=== PATIENT | female | born 1970 | race Hispanic/Latino ===

== ENCOUNTER → 2017-08-09 | Outpatient (CLI) | payer MEDICARE | END | disposition home or self-care (01) | LOC: SHCH 14:10 | PROVIDERS: ATTEND Internal Medicine Cardiovascular Disease | DX: R01.1 Cardiac murmur, unspecified (principal); R00.2 Palpitations; R94.31 Abnormal electrocardiogram [ECG] [EKG] | CPT/HCPCS: 93306 ==

== ENCOUNTER 2018-11-01 03:59 | Emergency (ER) | payer MEDICARE ==
[~2018-11-01] VITALS: Ht 149.9 cm; Wt 73.5 kg
[2018-11-01] MEDS ORDERED: MORPHINE SULFATE 4 MG/1ML SYG ONE ×2 (05:06→06:30)
[2018-11-01] MEDS ORDERED: ONDANSETRON HCL 4 MG/2 ML VIAL ONE ×2 (05:06→08:11)
[2018-11-01 05:15] LABS: BASOPHILS % (AUTO) 0.9 % (0.0-5.0); EOSINOPHILS % (AUTO) 6.7 % (0.0-8.0); HEMATOCRIT 40.9 % (36-48); LYMPHOCYTES % (AUTO) 36.2 % (21.0-51.0); MEAN CORPUSCULAR HEMOGLOBIN 25.1 pg (27.0-33.0); MONOCYTES % (AUTO) 6.8 % (3.0-13.0); NEUTROPHILS % (AUTO) 49.4 % (40.0-77.0); PLATELET COUNT (AUTO) 373 K/uL (130-400); RED BLOOD CELL COUNT(AUTO) 5.39 MIL/uL (4.00-5.50); RED CELL DISTRIBUTION WIDTH 20.8 % (11.0-15.5); WHITE BLOOD COUNT (AUTO) 8.7 K/uL (4.8-10.8)
[2018-11-01 05:23] LABS: CREATININE 0.9 mg/dL (0.5-1.5); POTASSIUM 3.6 mmol/L (3.5-5.1)
[2018-11-01 05:27] LABS: ALBUMIN 3.4 g/dL (3.5-5.0); BILIRUBIN,TOTAL 0.4 mg/dL (0.2-1.0); TOTAL PROTEIN, SERUM 7.6 g/dL (6.0-8.3)
[2018-11-01] MEDS ORDERED: TETRACAINE HCL 0.5% 4 ML OPHTH SOLN ONE (06:43)
[2018-11-01] MEDS ORDERED: PILOCARPINE HCL 2% 15 ML DROPS ONE (07:05)
[2018-11-01] MEDS ORDERED: ACETAZOLAMIDE SODIUM 500 MG VIAL ONE (09:02)
[2018-11-01] MEDS ORDERED: TIMOLOL MALEATE 0.25% 5 ML BOTTLE ONE (09:03)
== END 2018-11-01 10:05 | disposition home or self-care (01) ==
LOC: EDH 03:59
DX: H40.9 Unspecified glaucoma (principal); H54.8 Legal blindness, as defined in USA; J45.909 Unspecified asthma, uncomplicated; G43.909 Migraine, unspecified, not intractable, without status migrainosus; Z98.890 Other specified postprocedural states; Z90.710 Acquired absence of both cervix and uterus
CPT/HCPCS: 36415; 70450; 80053; 85025; 96365; 96375; 96376; 99285; J1120; J2270 ×2; J2405 ×2

== ENCOUNTER 2019-12-16 | Emergency (ER) | payer MEDICARE | END 2019-12-16 20:29 | disposition home or self-care (01) | DX: Z20.7 Contact with and (suspected) exposure to pediculosis, acariasis and other infestations (principal); J45.909 Unspecified asthma, uncomplicated; G43.909 Migraine, unspecified, not intractable, without status migrainosus ==

== ENCOUNTER 2024-01-01 16:04 | Emergency (ER) | payer OTHER, MEDICARE ==
[~2024-01-01] VITALS: Ht 149.9 cm; Wt 80.7 kg
[2024-01-01 17:22] LABS: BASOPHILS # (AUTO) 0.06 K/uL (0.00-0.20); BASOPHILS % (AUTO) 0.6 % (0.0-5.0); EOSINOPHILS # (AUTO) 0.23 K/uL (0.00-0.70); EOSINOPHILS % (AUTO) 2.4 % (0.0-8.0); HEMATOCRIT 47.9 % (36-48); IMMATURE GRANULOCYTE ABSOLUTE 0.04 K/uL (0-1); LYMPHOCYTES # (AUTO) 2.6 K/uL (1.0-4.8); LYMPHOCYTES % (AUTO) 27.3 % (21.0-51.0); MEAN CORPUSCULAR HEMOGLOBIN 28.9 pg (27.0-33.0); MEAN CORPUSCULAR HGB CONC 32.6 g/dL (32.0-36.0); MEAN CORPUSCULAR VOLUME 88.7 fL (79-99); MONOCYTES # (AUTO) 0.6 K/uL (0.1-1.0); MONOCYTES % (AUTO) 6.1 % (3.0-13.0); NEUTROPHILS # (AUTO) 6.1 K/uL (1.8-7.7); NEUTROPHILS % (AUTO) 63.2 % (40.0-77.0); PLATELET COUNT (AUTO) 296 K/uL (130-400); RED CELL DISTRIBUTION WIDTH 14.6 % (11.0-15.5); WHITE BLOOD COUNT (AUTO) 9.6 K/uL (4.8-10.8)
[2024-01-01 17:31] LABS: CREATININE 0.8 mg/dL (0.5-1.0)
[2024-01-01 17:35] LABS: INR 0.99 (0.85-1.15); PARTIAL THROMBOPLASTIN TIME 23.6 SEC (26.3-35.5); PROTHROMBIN TIME 10.5 SEC (9.6-11.6)
[2024-01-01 17:44] LABS: B-TYPE NATRIURETIC PEPTIDE 34 pg/mL (0-100)
[2024-01-01 17:46] LABS: APPEARANCE,URINE CLOUDY (CLEAR); BILIRUBIN,URINE NEGATIVE (NEGATIVE); COLOR,URINE YELLOW (YELLOW); GLUCOSE, URINE (UA) NEGATIVE (NEGATIVE); KETONES,URINE 5 mg/dL (NEGATIVE); LEUKOCYTE ESTERASE ,URINE NEGATIVE Leu/uL (NEGATIVE); NITRATE,URINE NEGATIVE (NEGATIVE); OCCULT BLOOD,URINE NEGATIVE (NEGATIVE); PROTEIN,URINE NEGATIVE (NEGATIVE); UROBILINOGEN,URINE 0.2 mg/dL (0.2-1.0)
[2024-01-01 17:55] LABS: ADD UA MICROSCOPIC YES
[2024-01-01 18:03] LABS: MUCUS,URINE FEW LPF (None Seen); SQUAMOUS EPITHELIAL CELL,UR FEW /HPF (0-2)
[2024-01-01 18:06] LABS: BACTERIA,URINE Rare /HPF (None Seen)
[2024-01-01] MEDS: 0.9%NACL 1000ML 1,000 ML IV ONE (18:20)
[2024-01-01] MEDS: MECLIZINE HCL 25 MG TABLET PO ONE (18:20)
[2024-01-01] MEDS ORDERED: FLUT16H NASAL (18:24)
[2024-01-01] MEDS ORDERED: LORA10TA7 PO (18:24)
[2024-01-01] MEDS ORDERED: AMOX1TAB16 PO (18:24)
[2024-01-01 18:27] VITALS: BP 114/79; PULSE 75; RESP 16; O2SAT 98
[2024-01-01] MEDS: DEXAMETHASONE SOD PHOSPHATE 4 MG/ML 1ML VIAL IM ONE (18:29)
== END 2024-01-01 19:05 | disposition home or self-care (01) ==
LOC: EDH 16:04
DX: J32.9 Chronic sinusitis, unspecified (principal); Z88.5 Allergy status to narcotic agent; Z90.49 Acquired absence of other specified parts of digestive tract
CPT/HCPCS: 99285; 96360; 70450; 71045; 82550; 83721; 84484; 80048; 83880; 85025; 85610; 85730; 81001; 36415; 93005; 96372; J1100; J7030

== ENCOUNTER 2024-05-11 17:19 | Emergency (ER) | payer OTHER, MEDICARE ==
[~2024-05-11] VITALS: Ht 149.9 cm; Wt 78.5 kg
[~2024-05-11 17:19] MED LIST: AMOX1TAB16 PO; FLUT16H NASAL; LORA10TA7 PO
[2024-05-11 17:41] VITALS: BP 133/69; PULSE 88; RESP 14; TEMP 98.5; O2SAT 98
[2024-05-11] MEDS ORDERED: HYDR453. TP (17:47)
[2024-05-11] MEDS: DiphenhydrAMINE HCL 25 MG CAPSULE PO ONE (18:15)
[2024-05-11] MEDS ORDERED: DIPH50 PO (18:28)
== END 2024-05-11 18:35 | disposition home or self-care (01) ==
LOC: EDH 17:19
DX: L20.9 Atopic dermatitis, unspecified (principal); Z88.5 Allergy status to narcotic agent; Z79.899 Other long term (current) drug therapy; Z90.49 Acquired absence of other specified parts of digestive tract; Z98.890 Other specified postprocedural states
CPT/HCPCS: 99282; Q0163

== ENCOUNTER → 2024-10-21 | Outpatient (CLI) | payer OTHER, MEDICARE ==
[~2024-10-21] MED LIST changes: +DIPH50 PO; +HYDR453. TP; +IOHEXOL 350 MG/ML 100ML INFUS..BTL IV ONE; +metoPROLOL tartRATE 1 MG/ML 5ML VIAL IV ONE
--- NOTE | 2024-10-21 10:20 | HMCIMG ---
CT OF THE CHEST WITH CONTRAST- CT Cardiac Angio co-interpretation This is done as part of the CT cardiac angiogram study. The interpretation of the coronary arteries will be done by public health clinical nurse specialist in a separate report. History: over-read Comparison: none CT Dose Index (CTDI): 77.90 mGy Dose Length Product (DLP): 493.40 total mGy PROTOCOL: Examination is done at 2.5 millimeter volumetric acquisition after contrast administration with Isovue 370, 100 cc IV, without complications. Photography is done at 5 millimeter thick intervals for the thorax. The examination begins above the heart and therefore the lung apices are incompletely included. The rest of the left lung is included but the right lung is only included up to its middle third. The periphery of the right lung is not included in the study. FINDINGS: The visualized part of the airway is preserved. The bony and soft tissue structures of the chest wall are unremarkable. The aorta is unremarkable. No mediastinal lymphadenopathy is seen. The lung windows demonstrate no worrisome pulmonary nodules, masses or infiltrates. There is no evidence of pulmonary embolism in the visualized lung segments. The upper abdominal views are unremarkable. Impression: No significant abnormalities identified.
== END | disposition home or self-care (01) ==
LOC: RAH 09:00
PROVIDERS: ATTEND Student in an Organized Health Care Education/Training Program
DX: R07.9 Chest pain, unspecified (principal)
CPT/HCPCS: 75574; J3490; Q9967